=== PATIENT | female | born 1995 | race African-American/Black ===

== ENCOUNTER 2024-09-16 16:25 | Emergency (ER) | payer OTHER ==
[~2024-09-16] VITALS: Ht 165.1 cm; Wt 82.7 kg
[2024-09-16 17:02] VITALS: TEMP 98.1
[2024-09-16 19:22] VITALS: BP 130/89; PULSE 84; RESP 19; O2SAT 99
[2024-09-16] MEDS ORDERED: CEPH-558 PO (19:22)
[2024-09-16] MEDS ORDERED: METR500 PO (19:22)
== END 2024-09-16 19:40 | disposition home or self-care (01) ==
LOC: EMS 16:25
DX: T19.2XXA Foreign body in vulva and vagina, initial encounter (principal); W44.9XXA Unspecified foreign body entering into or through a natural orifice, initial encounter; Y93.89 Activity, other specified; Y92.89 Other specified places as the place of occurrence of the external cause; Y99.8 Other external cause status
CPT/HCPCS: 99284; Z7502

== ENCOUNTER 2024-11-05 09:20 | Emergency (ER) | payer OTHER ==
[~2024-11-05] VITALS: Ht 165.1 cm; Wt 81.4 kg
[~2024-11-05 09:20] MED LIST: CEPH-558 PO; METR500 PO
[2024-11-05 09:29] VITALS: BP 105/65; PULSE 85; RESP 18; TEMP 98.8; O2SAT 99
[2024-11-05] MEDS ORDERED: PENI500T2 PO (11:08)
[2024-11-05] MEDS ORDERED: CLIN-142 PO (11:08)
== END 2024-11-05 18:58 | disposition home or self-care (01) ==
LOC: EMS 09:22
DX: T19.2XXA Foreign body in vulva and vagina, initial encounter (principal); W44.8XXA Other foreign body entering into or through a natural orifice, initial encounter; Y93.89 Activity, other specified; Y92.89 Other specified places as the place of occurrence of the external cause; Y99.8 Other external cause status
CPT/HCPCS: 99284; Z7502